=== PATIENT | female | born 1965 | race Caucasian/White ===

== ENCOUNTER 2017-07-30 09:22 | Day surgery (SDC) | payer MEDICARE, MEDICAID, SELFPAY ==
[2017-07-30] VITALS (7 sets, daily range): BP systolic 122–151; BP diastolic 67–81; PULSE 60–72; RESP 14–18; TEMP 36.4–37.1; O2SAT 93–100; BMI 26.9
--- NOTE | 2017-07-30 11:00 | RAD_ITS ---
STUDY: X-RAY - LUMBAR SPINE REASON FOR EXAM: Female, 52 years old. Intraoperative imaging for spinal stimulator placement. TECHNIQUE: 2 coned down intraoperative view(s) of the lumbar spine were obtained. COMPARISON: None FINDINGS: The tip of the electrodes is at the T8-T9 level RAD/Lumbar Spine 2 or 3 Views IMPRESSION: Intraoperative imaging provided for placement of the pain stimulator device. Electronically Signed: Paulino Snyder MD at 13:20 EST Tel [phone], Service support ,
[2017-07-30] MEDS: Clindamycin 900 MG/50 ML BAG 75 MG IV (11:29)
--- NOTE | 2017-07-30 12:49 | PCM.DC ---
- Discharge Diagnoses Current Active Problems: Lumbar post laminectomy syndrome Lumbar spine pain and bilateral lower extremity radiculopathy You will use the following diet at home:: Regular Your food should be the consistency of: Regular Discharge Activity: May Not Drive, May not drive while taking narcotic pain medications., May Not Shower, - - Avoid bending lifting twisting and rotation May shower in (days): 5 May resume sexual activity in: 10-14 days Weight Bearing Status: Weight bearing as tolerated Additional Activity Instructions:: Avoid bending, lifting, twisting, rotation, until Torri healing place Call your doctor if your incision/area has: Continuous Slow Oozing, Sudden Increased Bleeding, Increased Pain/ Swelling, Increased Redness, Foul Smelling Discharge, Swelling at the incision site Call your doctor if you observe: Fever of 101 or Higher, Coldness, Increased Pain, Numbness or Tingling, Inability to urinate, Inability to have a bowel movement, Uncontrolled pain Suture Line Care: Avoid Pulling/Pushing, Avoid Pinching/Bending Change Dressing in (Days):: 5 Cleanse incision/area with: Do not get Incision Wet Allergies/Adverse Reactions: Allergies Penicillins Allergy (Verified 07/26/17 09:26) Anaphylaxis Sulfa (Sulfonamide Antibiotics) Allergy (Verified 07/26/17 09:26) Hives doxycycline Adverse Reaction (Verified 07/26/17 09:26) Vomiting erythromycin base Adverse Reaction (Verified 07/26/17 09:26) Nausea oxaprozin [From Daypro] Adverse Reaction (Verified 07/26/17 09:26) Vomiting Medications to take at Discharge Albuterol IH (ProAir) [Proair Hfa (SP)Vent Pts] 2 puff INHALATION BID 12/29/16 Albuterol Inhaler [Ventolin Hfa (SP)] 2 puff INHALATION Q6H PRN PRN 12/29/16 Atorvastatin Calcium [Lipitor] 10 mg PO QHS 12/29/16 Cholecalciferol (Vitamin D3) [Vitamin D3] 1,000 unit PO DAILY 12/29/16 Gabapentin [Neurontin] 600 mg PO TIDCM 12/29/16 Morphine Sulfate [Morphine Sulfate ER] 15 mg PO BID 12/29/16 Oxycodone HCl [Oxycontin] 10 mg PO BID 12/29/16 Sertraline HCl [Zoloft] 150 mg PO DAILY 12/29/16 Tizanidine HCl [Zanaflex] 4 mg PO BID PRN 12/29/16 Primary Care Physician: Jairo Patten,Out of [Primary Care Provider] - Please Follow Up With: Chay Caballero MD
--- NOTE | 2017-07-30 12:54 | PCM.OP.BLANK ---
Problem List (1) Lumbar post-laminectomy syndrome Status: Chronic (2) Other intervertebral disc degeneration, lumbar region Status: Chronic (3) Radiculopathy of lumbar region Status: Chronic Operative Report Date of Procedure: 07/30/17 After informed consent about the procedure, review prior care for the presenting complaint of lower back pain and lower extremity radicular pain. Patient had successful spinal cord stimulator trial and decision was made to proceed with a permanent implant based on patient response to the trial period. Patient taken to OR [6], placed to the prone position pressure points were padded appropriate monitoring per anesthesia team were applied patient was safe to administer anesthesia per anesthesia team. Anesthesia provided is general anesthesia/monitored anesthesia care with no intubation. After appropriate fluoroscopy guidance and marking of the targeted area to the entry at the level of L2-3, appropriate draping was applied, sterile preparation using DuraPrep to both incision in the mid lumbar spinal area at the level of the L2-3, and of the right gluteal region for the IPG placement. Incision started , used 25-gauge needle for skin infiltration with local anesthesia using preservative-free lidocaine 0.5% mixture was Marcaine 0.25% was 1-200,000 epinephrine. Using #10 blade, made 2.5 inch longer to the incision, longitudinal, at the level of L2-L3 at the midline using #10 blade. Incision was completed using cauterization at level 30?, coagulation at levels 30? to ensure no bleeding spots. After proper exploration of the area, used a 14-gauge curved tip Touhy needle to access at 45? angle to the posterior epidural space at the entry point L1 to at midline confirmed with AP and lateral fluoroscopy and [id number] technique using preservative-free normal saline and glass syringes. I have placed to needles at the L1-2 posterior epidural space and noted aspiration was negative for CSF and blood. I passed TWO # 8 contacts leads, [[employer] System], they both passed parralel to each other through the 2 needles in the posterior epidural space confirmed with lateral fluoroscopy and AP fluoroscopy at the midline until placed smoothly at the posterior epidural space with the tip of the lead at the top of T8 vertebrae. Using [[employer] wireless] associate programmer analyst I have placed the associate programmer analyst on the leads insured [by the greenlight] and patient was awakened throughout the placement of the wires and placement of the leads, given patient 45 minutes complex programming for the different painful target areas until the patient verified appropriate coverage over the painful areas in the lower back and both legs using contacts in the middle of both leads. After patient has expressed satisfaction with the placement patient was put back to anesthesia for sedation. I disconnected the associate programmer analyst from the leads followed by pulling the 2 needles and the guidewire from the leads under live fluoroscopy and kept placement of the 2 leads at the posterior epidural space at the T8 and T9 as initially placed. At that time we used two anchors to anchor the [address] confirmed with fluoroscopy to ensure the leads stayed in place at each step followed by using 2 silk sutures to anchor the 2 anchors was then leads into the posterior longitudinal ligaments. IPG pocket was performed on the [ right] gluteal region below the belt line after identification was fluoroscopy, 2.5 inch transverse incision was made after local infiltration with lidocaine preservative-free 0.5% and Marcaine quarter percent infiltrated with 10 cc and using incision by #10 blade made the pocket to accommodate the rechargeable battery at place. I used tunneling device between the IPG pocket and the midline lumbar incision to tunnel the 2 leads to the IPG followed by anchoring the 2 leads into the battery and using hex wrench to tighten the placement, this was confirmed with another complex programming and impedance was completed to be appropriate at all contacts. After ensuring good placement of the system, I have used to silk suture to tighten the battery in place. We have used sterile irrigation to irrigate both pockets, followed by closure with the deep layer with 2-0 Vicryl and closure of the superficial layer with subcuticular closure with Vicryl sutures. We applied dressing using Dermabond, Steri-Strips at both insert incisions followed by covering with transparent draping. Patient tolerated the procedure well taken to recovery and prepared to be discharged home once meets anesthesia criteria, patient was given the postoperative instruction and the follow-up procedure including antibiotic coverage instructions.
--- NOTE | 2017-07-30 13:20 | OP.PCM_ITS ---
Problem List (1) Lumbar post-laminectomy syndrome Status: Chronic (2) Other intervertebral disc degeneration, lumbar region Status: Chronic (3) Radiculopathy of lumbar region Status: Chronic Operative Report Date of Procedure: 07/30/17 After informed consent about the procedure, review prior care for the presenting complaint of lower back pain and lower extremity radicular pain. Patient had successful spinal cord stimulator trial and decision was made to proceed with a permanent implant based on patient response to the trial period. Patient taken to OR [6], placed to the prone position pressure points were padded appropriate monitoring per anesthesia team were applied patient was safe to administer anesthesia per anesthesia team. Anesthesia provided is general anesthesia/monitored anesthesia care with no intubation. After appropriate fluoroscopy guidance and marking of the targeted area to the entry at the level of L2-3, appropriate draping was applied, sterile preparation using DuraPrep to both incision in the mid lumbar spinal area at the level of the L2-3, and of the right gluteal region for the IPG placement. Incision started , used 25-gauge needle for skin infiltration with local anesthesia using preservative-free lidocaine 0.5% mixture was Marcaine 0.25% was 1-200,000 epinephrine. Using #10 blade, made 2.5 inch longer to the incision, longitudinal, at the level of L2-L3 at the midline using #10 blade. Incision was completed using cauterization at level 30?, coagulation at levels 30? to ensure no bleeding spots. After proper exploration of the area, used a 14-gauge curved tip Touhy needle to access at 45? angle to the posterior epidural space at the entry point L1 to at midline confirmed with AP and lateral fluoroscopy and loss-of- resistance technique using preservative-free normal saline and glass syringes. I have placed to needles at the L1-2 posterior epidural space and noted aspiration was negative for CSF and blood. I passed TWO # 8 contacts leads, [[employer] System], they both passed parralel to each other through the 2 needles in the posterior epidural space confirmed with lateral fluoroscopy and AP fluoroscopy at the midline until placed smoothly at the posterior epidural space with the tip of the lead at the top of T8 vertebrae. Using [[employer] wireless] vba programmer I have placed the vba programmer on the leads insured [by the green[employer]] and patient was awakened throughout the placement of the wires and placement of the leads, given patient 45 minutes complex programming for the different painful target areas until the patient verified appropriate coverage over the painful areas in the lower back and both legs using contacts in the middle of both leads. After patient has expressed satisfaction with the placement patient was put back to anesthesia for sedation. I disconnected the vba programmer from the leads followed by pulling the 2 needles and the guidewire from the leads under live fluoroscopy and kept placement of the 2 leads at the posterior epidural space at the T8 and T9 as initially placed. At that time we used two anchors to anchor the [address] confirmed with fluoroscopy to ensure the leads stayed in place at each step followed by using 2 silk sutures to anchor the 2 anchors was then leads into the posterior longitudinal ligaments. IPG pocket was performed on the [ right] gluteal region below the belt line after identification was fluoroscopy, 2.5 inch transverse incision was made after local infiltration with lidocaine preservative-free 0.5% and Marcaine quarter percent infiltrated with 10 cc and using incision by #10 blade made the pocket to accommodate the rechargeable battery at place. I used tunneling device between the IPG pocket and the midline lumbar incision to tunnel the 2 leads to the IPG followed by anchoring the 2 leads into the battery and using hex wrench to tighten the placement, this was confirmed with another complex programming and impedance was completed to be appropriate at all contacts. After ensuring good placement of the system, I have used to silk suture to tighten the battery in place. We have used sterile irrigation to irrigate both pockets, followed by closure with the deep layer with 2-0 Vicryl and closure of the superficial layer with subcuticular closure with Vicryl sutures. We applied dressing using Dermabond, Steri-Strips at both insert incisions followed by covering with transparent draping. Patient tolerated the procedure well taken to recovery and prepared to be discharged home once meets anesthesia criteria, patient was given the postoperative instruction and the follow-up procedure including antibiotic coverage instructions.
--- NOTE | 2017-07-30 14:04 | PCM.OPRPT ---
Problem List (1) Lumbar post-laminectomy syndrome Status: Chronic (2) Other intervertebral disc degeneration, lumbar region Status: Chronic (3) Radiculopathy of lumbar region Status: Chronic Report of Operation Date of Procedure: 07/30/17 Pre-Operative Diagnosis: Lumbar post laminectomy syndrome. Lower back pain and lumbar radiculopathy. Lumbar degenerative disc disease Post-Operative Diagnosis: Same Surgery/Procedure Performed:: Spinal cord stimulator permanent implant/[employer]tr[employer] rechargeable system. Permanent implant of #2 8 contexts lead under fluoroscopy guidance next. Complex programming 30-45 minutes intraoperative, 15-30 minutes postoperative. Physician fluoroscopy Description of Surgical Findings:: Lumbar postlaminectomy syndrome Type of Anesthesia:: MAC, MAC/Supplemental/Local Estimated Blood Loss (mL): 20 cc Fluids Replaced: 250 cc normal saline Description of Procedure: After informed consent about the procedure, review prior care for the presenting complaint of lower back pain and lower extremity radicular pain. Patient had successful spinal cord stimulator trial and decision was made to proceed with a permanent implant based on patient response to the trial period. Patient taken to OR 6, placed to the prone position pressure points were padded appropriate monitoring per anesthesia team were applied patient was safe to administer anesthesia per anesthesia team. Anesthesia provided is general anesthesia/monitored anesthesia care with no intubation. After appropriate fluoroscopy guidance and marking of the targeted area to the entry at the level of L2-3, appropriate draping was applied, sterile preparation using DuraPrep to both incision in the mid lumbar spinal area at the level of the L2-3, and of the right gluteal region for the IPG placement. Incision started , used 25-gauge needle for skin infiltration with local anesthesia using preservative-free lidocaine 0.5% mixture was Marcaine 0.25% was 1-200,000 epinephrine. Using #10 blade, made 2.5 inch longer to the incision, longitudinal, at the level of L2-L3 at the midline using #10 blade. Incision was completed using cauterization at level 30?, coagulation at levels 30? to ensure no bleeding spots. After proper exploration of the area, used a 14-gauge curved tip Touhy needle to access at 45? angle to the posterior epidural space at the entry point L1 to at midline confirmed with AP and lateral fluoroscopy and bfqh-ep-[id number] technique using preservative-free normal saline and glass syringes. I have placed to needles at the L1-2 posterior epidural space and noted aspiration was negative for CSF and blood. I passed TWO # 8 contacts leads, [employer] system, they both passed parralel to each other through the 2 needles in the posterior epidural space confirmed with lateral fluoroscopy and AP fluoroscopy at the midline until placed smoothly at the posterior epidural space with the tip of the lead at the top of T8 vertebrae. Using [employer] wireless j2ee programmer I have placed the j2ee programmer on the leads insured right and patient was awakened throughout the placement of the wires and placement of the leads, given patient 45 minutes complex programming for the different painful target areas until the patient verified appropriate coverage over the painful areas in the lower back and both legs using contacts in the middle of both leads. After patient has expressed satisfaction with the placement patient was put back to anesthesia for sedation. I disconnected the j2ee programmer from the leads followed by pulling the 2 needles and the guidewire from the leads under live fluoroscopy and kept placement of the 2 leads at the posterior epidural space at the T8 and T9 as initially placed. At that time we used two anchors to anchor the [address] confirmed with fluoroscopy to ensure the leads stayed in place at each step followed by using 2 silk sutures to anchor the 2 anchors was then leads into the posterior longitudinal ligaments. IPG pocket was performed on the right gluteal region below the belt line after identification was fluoroscopy, 2.5 inch transverse incision was made after local infiltration with lidocaine preservative-free 0.5% and Marcaine quarter percent infiltrated with 10 cc and using incision by #10 blade made the pocket to accommodate the rechargeable battery at place. I used tunneling device between the IPG pocket and the midline lumbar incision to tunnel the 2 leads to the IPG followed by anchoring the 2 leads into the battery and using hex wrench to tighten the placement, this was confirmed with another complex programming and impedance was completed to be appropriate at all contacts. After ensuring good placement of the system, I have used to silk suture to tighten the battery in place. We have used sterile irrigation to irrigate both pockets, followed by closure with the deep layer with 2-0 Vicryl and closure of the superficial layer with subcuticular closure with Vicryl sutures. We applied dressing using Dermabond, Steri-Strips at both insert incisions followed by covering with transparent draping. Patient tolerated the procedure well taken to recovery and prepared to be discharged home once meets anesthesia criteria, patient was given the postoperative instruction and the follow-up procedure including antibiotic coverage instructions. - Complications None
--- NOTE | 2017-07-30 14:08 | OP.PCM_ITS ---
Problem List (1) Lumbar post-laminectomy syndrome Status: Chronic (2) Other intervertebral disc degeneration, lumbar region Status: Chronic (3) Radiculopathy of lumbar region Status: Chronic Report of Operation Date of Procedure: 07/30/17 Pre-Operative Diagnosis: Lumbar post laminectomy syndrome. Lower back pain and lumbar radiculopathy. Lumbar degenerative disc disease Post-Operative Diagnosis: Same Surgery/Procedure Performed:: Spinal cord stimulator permanent implant/ [employer]tr[employer] rechargeable system. Permanent implant of #2 8 contexts lead under fluoroscopy guidance next. Complex programming 30-45 minutes intraoperative, 15 -30 minutes postoperative. Physician fluoroscopy Description of Surgical Findings:: Lumbar postlaminectomy syndrome Type of Anesthesia:: MAC, MAC/Supplemental/Local Estimated Blood Loss (mL): 20 cc Fluids Replaced: 250 cc normal saline Description of Procedure: After informed consent about the procedure, review prior care for the presenting complaint of lower back pain and lower extremity radicular pain. Patient had successful spinal cord stimulator trial and decision was made to proceed with a permanent implant based on patient response to the trial period. Patient taken to OR 6, placed to the prone position pressure points were padded appropriate monitoring per anesthesia team were applied patient was safe to administer anesthesia per anesthesia team. Anesthesia provided is general anesthesia/monitored anesthesia care with no intubation. After appropriate fluoroscopy guidance and marking of the targeted area to the entry at the level of L2-3, appropriate draping was applied, sterile preparation using DuraPrep to both incision in the mid lumbar spinal area at the level of the L2-3, and of the right gluteal region for the IPG placement. Incision started , used 25-gauge needle for skin infiltration with local anesthesia using preservative-free lidocaine 0.5% mixture was Marcaine 0.25% was 1-200,000 epinephrine. Using #10 blade, made 2.5 inch longer to the incision, longitudinal, at the level of L2-L3 at the midline using #10 blade. Incision was completed using cauterization at level 30?, coagulation at levels 30? to ensure no bleeding spots. After proper exploration of the area, used a 14-gauge curved tip Touhy needle to access at 45? angle to the posterior epidural space at the entry point L1 to at midline confirmed with AP and lateral fluoroscopy and loss-of- resistance technique using preservative-free normal saline and glass syringes. I have placed to needles at the L1-2 posterior epidural space and noted aspiration was negative for CSF and blood. I passed TWO # 8 contacts leads, [employer] system, they both passed parralel to each other through the 2 needles in the posterior epidural space confirmed with lateral fluoroscopy and AP fluoroscopy at the midline until placed smoothly at the posterior epidural space with the tip of the lead at the top of T8 vertebrae. Using [employer] wireless application programmer analyst I have placed the application programmer analyst on the leads insured right and patient was awakened throughout the placement of the wires and placement of the leads, given patient 45 minutes complex programming for the different painful target areas until the patient verified appropriate coverage over the painful areas in the lower back and both legs using contacts in the middle of both leads. After patient has expressed satisfaction with the placement patient was put back to anesthesia for sedation. I disconnected the application programmer analyst from the leads followed by pulling the 2 needles and the guidewire from the leads under live fluoroscopy and kept placement of the 2 leads at the posterior epidural space at the T8 and T9 as initially placed. At that time we used two anchors to anchor the [address] confirmed with fluoroscopy to ensure the leads stayed in place at each step followed by using 2 silk sutures to anchor the 2 anchors was then leads into the posterior longitudinal ligaments. IPG pocket was performed on the right gluteal region below the belt line after identification was fluoroscopy, 2.5 inch transverse incision was made after local infiltration with lidocaine preservative-free 0.5% and Marcaine quarter percent infiltrated with 10 cc and using incision by #10 blade made the pocket to accommodate the rechargeable battery at place. I used tunneling device between the IPG pocket and the midline lumbar incision to tunnel the 2 leads to the IPG followed by anchoring the 2 leads into the battery and using hex wrench to tighten the placement, this was confirmed with another complex programming and impedance was completed to be appropriate at all contacts. After ensuring good placement of the system, I have used to silk suture to tighten the battery in place. We have used sterile irrigation to irrigate both pockets, followed by closure with the deep layer with 2-0 Vicryl and closure of the superficial layer with subcuticular closure with Vicryl sutures. We applied dressing using Dermabond, Steri-Strips at both insert incisions followed by covering with transparent draping. Patient tolerated the procedure well taken to recovery and prepared to be discharged home once meets anesthesia criteria, patient was given the postoperative instruction and the follow-up procedure including antibiotic coverage instructions. - Complications None
[2017-07-30] MEDS: HYDROcodone Bitartrate/Apap 5/325 Tablet PO (14:40)
[2017-07-30] MEDS: Ketorolac 30 MG/ML Syringe IM (14:40)
== END 2017-07-30 15:20 | disposition home or self-care (01) ==
LOC: SDC 09:23 → AC 09:25
PROVIDERS: Visit Provider Anesthesiology
PROC: (CPT 63685; principal; 2017-07-30 10:45)
DX: M51.36 Other intervertebral disc degeneration, lumbar region (principal); M96.1 Postlaminectomy syndrome, not elsewhere classified; M51.16 Intervertebral disc disorders with radiculopathy, lumbar region; M47.26 Other spondylosis with radiculopathy, lumbar region; M48.061 Spinal stenosis, lumbar region without neurogenic claudication; G89.29 Other chronic pain; M79.7 Fibromyalgia; J44.9 Chronic obstructive pulmonary disease, unspecified; M19.90 Unspecified osteoarthritis, unspecified site; G56.01 Carpal tunnel syndrome, right upper limb; K58.9 Irritable bowel syndrome, unspecified; E78.00 Pure hypercholesterolemia, unspecified; F32.9 Major depressive disorder, single episode, unspecified; F41.9 Anxiety disorder, unspecified; Z79.891 Long term (current) use of opiate analgesic; Z79.899 Other long term (current) drug therapy; F17.210 Nicotine dependence, cigarettes, uncomplicated; Z90.710 Acquired absence of both cervix and uterus
CPT/HCPCS: 63650 ×2; 63685; 95972; 72100; 76000; J7120; J3490

== ENCOUNTER → 2017-11-05 15:04 | Outpatient (CLI) | payer MEDICARE, SELFPAY ==
[2017-11-05 16:00] LABS: Amphetamine Urine VISTA NEGATIVE (<1000 ng/mL); Barbiturate Urine VISTA NEGATIVE (< 200 ng/mL); Benzodiazepine Urine VISTA NEGATIVE (< 200 ng/mL); Cocaine Urine VISTA NEGATIVE (< 300 ng/mL); Ecstacy Urine VISTA NEGATIVE (< 500 ng/mL); Methadone Urine VISTA NEGATIVE (< 300 ng/mL); PCP Urine VISTA NEGATIVE (< 25 ng/mL); THC Urine VISTA NEGATIVE (< 50 ng/mL); Vista UDS pH Range 7
== END ==
PROVIDERS: Visit Provider Anesthesiology
DX: F11.20 Opioid dependence, uncomplicated (principal)
CPT/HCPCS: 80307

== ENCOUNTER 2018-03-25 16:35 | Emergency (ER) | payer MEDICARE, SELFPAY ==
[2018-03-25] VITALS (11 sets, daily range): BP systolic 123–179; BP diastolic 80–103; PULSE 55–85; RESP 12–24; TEMP 37.1; O2SAT 96–100; BMI 26.6
--- NOTE | 2018-03-25 16:47 | EKG12_ITS ---
Test Reason : CP Blood Pressure : / mmHG Vent. Rate : 081 BPM Atrial Rate : 081 BPM P-R Int : 164 ms QRS Dur : 074 ms QT Int : 386 ms P-R-T Axes : 071 049 064 degrees QTc Int : 448 ms Normal sinus rhythm Nonspecific ST abnormality Abnormal ECG Confirmed by ZOFIA FRYE, FITZ ([id number]), editor magazine IRAIDA FELIZ ([id number]) on 03/28/2018 3:17:43 PM Referred By: MAXIMO/MARTHA Confirmed By:FITZ ARMIJO MD
--- NOTE | 2018-03-25 16:54 | ED.RN ---
NO OLD EKG'S IN MUSE
--- NOTE | 2018-03-25 17:01 | RAD_ITS ---
STUDY: X-RAY CHEST REASON FOR EXAM: Female, 53 years old. Chest pain TECHNIQUE: Single AP portable view of the chest. COMPARISON: None. FINDINGS: athletic monitor leads are present. Spinal stimulator electrodes are seen overlying the mid thoracic region. The lungs are clear and expanded. There is no demonstrated pleural abnormality. Normal size heart. Normal mediastinum and ismael. Normal visualized pulmonary arteries. Normal visualized aortic arch and descending thoracic aorta. Normal visualized thoracic spine. Normal visualized ribs, clavicles, and shoulders. There is no demonstrated abnormality of the visualized soft tissue structures of the upper abdomen. RAD/Chest 1 View (Portable) IMPRESSION: No acute cardiopulmonary disease process is seen. Electronically Signed: Odell Butler MD at 17:15 EDT , Service support ,
[2018-03-25 17:04] LABS: Absolute Lymphocyte Count 3.46 X10^3/ul (0.83-4.51); Absolute Neutrophil Count 3.2 X10^3/uL (2.0-7.7); Basophil# 0.01 X10^3/uL; Basophil% 0.1 % (0-1); Eosinophil# 0.33 X10^3/uL; Eosinophils% 4.4 % (0-5); Hematocrit 40.3 % (37-47); Hemoglobin 13.4 g/dl (12.0-15.0); Lymphocyte # 3.46 X10^3/ul (4.0); Lymphocyte % 45.8 % (19-41); Mean Corp Hgb Conc 33.3 g/gl (32-36); Mean Corpuscular Hgb 30.6 pg (27.0-32.0); Mean Platelet Vol. 10.2 fl (6.2-12.0); Monocyte# 0.57 X10^3/uL; Monocyte% 7.5 % (0-10); Neutrophil # 3.18 X10^3/uL (2.7-7.7); Neutrophil % 42.1 % (47-70); Platelet Count 200 K/mm3 (150-450); RBC Distribution Width SD 43.6 fl (35.1-43.9); Red Blood Count 4.38 M/mm3 (4.2-5.4); White Blood Count 7.6 K/mm3 (4.4-11.0)
[2018-03-25 17:15] LABS: POSITIVE COUNT NO; POSITIVE DIFFERENTIAL NO; POSITIVE MORPHOLOGY NO
[2018-03-25 17:23] LABS: Anion Gap 6 (5-15); BUN 13 mg/dL (7-18); BUN/Creat Ratio 15.5 RATIO (10-20); Calcium,Total 8.9 mg/dL (8.5-10.1); Chloride 107 mmol/L (98-107); Creatinine, Serum 0.84 mg/dL (0.55-1.02); EST Glomerular Filtration Rate 75 mL/min (>60); Est Glom Filt Rate - Afr Amer 91 mL/min (>60); Estimated Creatinine Clearance 65.35 ml/min; Glucose 100 mg/dL (74-106); Potassium 3.9 mmol/L (3.5-5.1); Sodium Level 142 mmol/L (136-145)
[2018-03-25] MEDS: Aspirin 81 MG TAB.CHEW 324 MG PO (17:30)
[2018-03-25] MEDS: 0.9% Normal Saline 1,000 ML 150 ML IV (17:32)
--- NOTE | 2018-03-25 18:54 | ED.DCSUM_ITS ---
- ER Visit Summary Date of Service: 03/25/18 Chief Complaint: Chest pain History of Present Illness: The patient is a 53 F with a 3-day history of waxing and waning chest heaviness with radiation to her arms, right greater than left. She does report some associated shortness of breath. She reports having an AL 6 months ago. She had a heart cath at [facility] but states she does not have any cardiac stents. Physical Examination: Blood pressure is 179/103, other vitals normal. Patient sitting upright in bed no acute distress. Head neck examination is normal. Heart is regular rate and rhythm. Lung sounds are clear. Abdomen is soft nontender. Extremity examination was no calf tenderness or edema. She has strong distal pulses. Test Results: EKG is sinus at 81 with 1/[address] depression. Portal chest x-ray shows no acute process. CBC and chemistry studies are normal. Plan is less than 0.015. Emergency Department Course and Treatment: Patient is given aspirin along with 3 sublingual nitro. On repeat evaluation she states her pain is improved to a 4. She will have Nitropaste placed on her chest and given a dose of morphine. I discussed hospitalization with her for further evaluation. 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 I spoke with and patient has been accepted in transfer. Treatment Plan: [] Disposition: Transfer Impression: Chest pain This note was generated with [employer] dictation software. It may contain incorrect words, spelling, and punctuation that were not noted in review of the chart prior to signing ED Disposition - Plan for ED Patient: Chief Complaint: Chest Pain Referrals: Care Physician,No Primary [Primary Care Provider] -
--- NOTE | 2018-03-25 19:13 | NURSING ---
ACCEPTED TO [facility] FOR REPORT
[2018-03-25] MEDS: Nitroglycerin Oint 1 INCH PACKET TRANSDERM. (19:20)
[2018-03-25] MEDS: Ondansetron 4 MG/2 ML Vial IV ×2 (19:22→20:32)
[2018-03-25] MEDS: Morphine 4 MG/ML Syringe IV ×2 (19:25→20:32)
== END 2018-03-25 20:30 | disposition short-term general hospital (02) ==
LOC: ED 17:21
PROVIDERS: Emergency Provider Emergency Medicine
DX: R07.9 Chest pain, unspecified (principal); R06.00 Dyspnea, unspecified; I25.10 Atherosclerotic heart disease of native coronary artery without angina pectoris; K21.9 Gastro-esophageal reflux disease without esophagitis; F32.9 Major depressive disorder, single episode, unspecified; F41.9 Anxiety disorder, unspecified; I25.2 Old myocardial infarction; Z72.0 Tobacco use; Z79.899 Other long term (current) drug therapy
CPT/HCPCS: 71045; 80048; 84484; 85025; 93005; 96361; 96374; 96375; 96376; 99285; J7030; A4216; J2405

== ENCOUNTER → 2018-12-09 11:20 | Outpatient (CLI) | payer MEDICARE, SELFPAY ==
[2018-12-09 12:12] LABS: Amphetamine Urine VISTA NEGATIVE (<1000 ng/mL); Barbiturate Urine VISTA NEGATIVE (< 200 ng/mL); Benzodiazepine Urine VISTA NEGATIVE (< 200 ng/mL); Cocaine Urine VISTA NEGATIVE (< 300 ng/mL); Ecstacy Urine VISTA NEGATIVE (< 500 ng/mL); Methadone Urine VISTA NEGATIVE (< 300 ng/mL); PCP Urine VISTA NEGATIVE (< 25 ng/mL); THC Urine VISTA NEGATIVE (< 50 ng/mL); Vista UDS pH Range 5
== END ==
PROVIDERS: Referring Provider Anesthesiology; Visit Provider Anesthesiology
DX: F11.20 Opioid dependence, uncomplicated (principal)
CPT/HCPCS: 80307

== ENCOUNTER 2018-12-30 14:43 | Day surgery (SDC) | payer MEDICARE, SELFPAY ==
[2018-12-30] VITALS (7 sets, daily range): BP systolic 150–160; BP diastolic 76–91; PULSE 48–60; RESP 16; TEMP 36.1–36.7; O2SAT 94–98; BMI 25.4
--- NOTE | 2018-12-30 16:00 | DCINST_ITS ---
- Discharge Diagnoses Current Active Problems: Lower back pain Reason(s) for Visit for Discharge Instructions: Receiving lumbar facet injection at the L3-4, L4-5 5 S1, procedure on the left side You will use the following diet at home:: No restrictions Your food should be the consistency of: Regular Discharge Activity: Return to Normal Activity May shower in (days): 1 May resume sexual activity in: No Restrictions Weight Bearing Status: Weight bearing as tolerated, Partial weight bearing Call your doctor if your incision/area has: Continuous Slow Oozing, Sudden Increased Bleeding, Increased Pain/ Swelling, Increased Redness, Foul Smelling Discharge, Swelling at the incision site Call your doctor if you observe: Fever of 101 or Higher, Coldness, Increased Pain Suture Line Care: Avoid Pulling/Pushing, Avoid Pinching/Bending Remove Dressing in (days):: 1 Cleanse incision/area with: Soap & Water Instructions: What Is Osteoarthritis?, Understanding Osteoarthritis, Osteoarthritis: Coping with Pain, Osteoarthritis: Managing Pain, Osteoarthritis: Injections or Surgery, Osteoarthritis: Tips for Daily Living, Osteoarthritis: Exercise, Living with Osteoarthritis, Osteoarthritis: Common Sites Allergies/Adverse Reactions: Allergies bupropion [From Wellbutrin] Allergy (Verified 12/29/18 09:41) Hives Penicillins Allergy (Verified 12/29/18 09:41) Anaphylaxis Sulfa (Sulfonamide Antibiotics) Allergy (Verified 12/29/18 09:41) Hives doxycycline Adverse Reaction (Verified 12/29/18 09:41) Vomiting erythromycin base Adverse Reaction (Verified 12/29/18 09:41) Nausea oxaprozin [From Daypro] Adverse Reaction (Verified 12/29/18 09:41) Vomiting Medications to take at Discharge Atorvastatin Calcium [Lipitor] 10 mg PO QHS 12/29/16 Gabapentin [Neurontin] 600 mg PO TIDCM 12/29/16 Morphine Sulfate [Morphine Sulfate ER] 15 mg PO BID 12/29/16 Oxycodone HCl [Oxycontin] 10 mg PO BID 12/29/16 Sertraline HCl [Zoloft] 150 mg PO DAILY 12/29/16 Tizanidine HCl [Zanaflex] 4 mg PO BID PRN 12/29/16 Aspirin [Aspir 81] 81 mg PO DAILY 12/29/18 Ergocalciferol [Vitamin D] 50,000 unit PO Q7D 12/29/18 Lisinopril [Prinivil] 10 mg PO DAILY 12/29/18 Tiotropium [place] [Spiriva 18 MCG] 2 puff INHALATION DAILY 12/29/18 Metoprolol(XL)Succ [Toprol Xl (Beta Sarah)] 25 mg PO BID 12/30/18 Primary Care Physician: Jairo Patten,Out of [Primary Care Provider] - Test Results: Test results from this visit will be discussed in further detail at your follow- up appointment, if applicable. Please Follow Up With: Chay Caballero MD
--- NOTE | 2018-12-30 16:02 | PCM.OPRPT ---
Problem List (1) Spondylosis of lumbar region without myelopathy or radiculopathy Status: Chronic Report of Operation Date of Procedure: 12/30/18 Pre-Operative Diagnosis: Lumbar facet spondylosis Post-Operative Diagnosis: Lumbar facet spondylosis lumbar spine pain with axial movement including rotation bending and lifting Surgery/Procedure Performed:: Left-sided lumbar facet blocks at the level of the left side L3-4 L4-5 5 S1 facets median nerve branch on the first with tightness Description of Surgical Findings:: Under sterile conditions. Patient placed in the prone position, pressure points were padded, patient was ready from the nursing and the anesthesia team. After identification of the side and the target area for the block under guided fluoroscopy, the entry site was marked with marking pen. I used Betadine for sterilization of the skin, sterile draping were applied. Using 25-gauge needle to infiltrate the skin with local anesthesia using preservative-free lidocaine 0.5% injected 2.5 mL at each site of entry. Using oblique fluoroscopy, accessed the left medial nerve branch supplying the left lumbar facets L3-4, L4-5, L5-S1 using 22-gauge spinal needle. After confirmation of appropriate needle placement to the targeted area with AP and lateral fluoroscopy, injected 2.5 mL mixture of preservative-free Marcaine 0.5% and Kenalog [20] mg at each site. [place] was removed, pressure dressing were applied. Patient tolerated the procedure well and was taken to the recovery. Type of Anesthesia:: Local MAC - Complications None
--- NOTE | 2018-12-30 16:57 | RAD_ITS ---
PROCEDURE: Fluoroscopic guided left facet blocks DATE OF EXAMINATION: December 30, 2018 INDICATION: Female, 53 years old. Back pain FLUOROSCOPY TIME (if supplied): (0:17) minutes/seconds RADIATION DOSAGE (If Supplied By Facility): CTDIvol = ( ) mGy, DLP = ( ) mGycm 3 fluoroscopic guided images were submitted during fluoroscopic guided facet injections at L2-3, L3-4, L4-5 and L5-S1. For more complete information recommend correlation with procedural notes RAD/L/S Spine Min 4 Views IMPRESSION: Fluoroscopic guided multilevel left lumbar facet blocks Electronically Signed: Johnnie Fernando MD at 19:35 EDT , Service support ,
[2018-12-30] MEDS: Triamcinolone Acetonide 40 MG/ML Vial (17:07)
[2018-12-30] MEDS: Bupivacaine 0.25% 30 ML Vial (17:07)
== END 2018-12-30 18:00 | disposition home or self-care (01) ==
LOC: SDC 14:43 → AC 14:45
PROVIDERS: Referring Provider Anesthesiology; Visit Provider Anesthesiology
PROC: 3E0T3BZ Introduction of Anesthetic Agent into Peripheral Nerves and Plexi, Percutaneous Approach (ICD-10-PCS; CPT 64493; principal; 2018-12-30 15:55)
DX: M47.816 Spondylosis without myelopathy or radiculopathy, lumbar region (principal); M47.817 Spondylosis without myelopathy or radiculopathy, lumbosacral region; M51.26 Other intervertebral disc displacement, lumbar region; M51.36 Other intervertebral disc degeneration, lumbar region; M48.061 Spinal stenosis, lumbar region without neurogenic claudication; M54.16 Radiculopathy, lumbar region; M96.1 Postlaminectomy syndrome, not elsewhere classified; G89.29 Other chronic pain; M79.7 Fibromyalgia; J44.9 Chronic obstructive pulmonary disease, unspecified; I10 Essential (primary) hypertension; E78.00 Pure hypercholesterolemia, unspecified; G25.81 Restless legs syndrome; K58.9 Irritable bowel syndrome, unspecified; M19.90 Unspecified osteoarthritis, unspecified site; F32.9 Major depressive disorder, single episode, unspecified; F41.9 Anxiety disorder, unspecified; F17.200 Nicotine dependence, unspecified, uncomplicated; Z79.82 Long term (current) use of aspirin; Z79.891 Long term (current) use of opiate analgesic; Z79.899 Other long term (current) drug therapy; I25.2 Old myocardial infarction; Z87.442 Personal history of urinary calculi
CPT/HCPCS: 64493; 64494; 64495; 64483; 72110; J7120

== ENCOUNTER 2019-02-10 12:45 | Day surgery (SDC) | payer MEDICARE, SELFPAY ==
[2018-12-30 15:02] VITALS: BMI 25.4
[2019-02-10] VITALS (7 sets, daily range): BP systolic 108–136; BP diastolic 58–80; PULSE 48–62; RESP 16; TEMP 36.1–36.5; O2SAT 95–98; BMI 26.7
--- NOTE | 2019-02-10 14:54 | PCM.DC ---
- Discharge Diagnoses Current Active Problems: Lower back pain, worse pain on the right side Reason(s) for Visit for Discharge Instructions: Right sacroiliac joint injection and trigger point at the level of the L5-S1 You will use the following diet at home:: No restrictions Your food should be the consistency of: Regular Discharge Activity: Return to Normal Activity May shower in (days): 1 May resume sexual activity in: No Restrictions Ice area for (Minutes): 1 Weight Bearing Status: Weight bearing as tolerated Additional Activity Instructions:: As tolerated Call your doctor if your incision/area has: Continuous Slow Oozing, Sudden Increased Bleeding, Increased Pain/ Swelling, Increased Redness, Foul Smelling Discharge, Swelling at the incision site Call your doctor if you observe: Fever of 101 or Higher, Coldness, Increased Pain, Numbness or Tingling, Uncontrolled pain Suture Line Care: Avoid Pulling/Pushing, Avoid Pinching/Bending Remove Dressing in (days):: 1 Cleanse incision/area with: Soap & Water, Keep Dressing Clean & Dry Allergies/Adverse Reactions: Allergies bupropion [From Wellbutrin] Allergy (Verified 12/29/18 09:41) Hives Penicillins Allergy (Verified 12/29/18 09:41) Anaphylaxis Sulfa (Sulfonamide Antibiotics) Allergy (Verified 12/29/18 09:41) Hives doxycycline Adverse Reaction (Verified 12/29/18 09:41) Vomiting erythromycin base Adverse Reaction (Verified 12/29/18 09:41) Nausea oxaprozin [From Daypro] Adverse Reaction (Verified 12/29/18 09:41) Vomiting Medications to take at Discharge Atorvastatin Calcium [Lipitor] 10 mg PO QHS 12/29/16 Gabapentin [Neurontin] 600 mg PO TIDCM 12/29/16 Morphine Sulfate [Morphine Sulfate ER] 15 mg PO BID 12/29/16 Oxycodone HCl [Oxycontin] 10 mg PO BID 12/29/16 Sertraline HCl [Zoloft] 150 mg PO DAILY 12/29/16 Tizanidine HCl [Zanaflex] 4 mg PO BID PRN 12/29/16 Aspirin [Aspir 81] 81 mg PO DAILY 12/29/18 Ergocalciferol [Vitamin D] 50,000 unit PO Q7D 12/29/18 Lisinopril [Prinivil] 10 mg PO DAILY 12/29/18 Tiotropium [place] [Spiriva 18 MCG] 2 puff INHALATION DAILY 12/29/18 Metoprolol(XL)Succ [Toprol Xl (Beta Sarah)] 25 mg PO BID 12/30/18 Primary Care Physician: VALERY FERNANDO [Other] Test Results: Test results from this visit will be discussed in further detail at your follow-up appointment, if applicable. Please Follow Up With: Chay Caballero MD
--- NOTE | 2019-02-10 14:55 | PCM.OPRPT ---
Problem List (1) Sacroiliitis, not elsewhere classified Status: Acute (2) Sacroiliitis, not elsewhere classified Status: Acute (3) Inflammation of both sacroiliac joints Status: Acute (4) Inflammation of both sacroiliac joints Status: Acute (5) Myalgia, unspecified site Status: Acute (6) Myalgia, unspecified site Status: Acute (7) Failed back syndrome of lumbar spine Status: Acute Report of Operation Date of Procedure: 02/10/19 Pre-Operative Diagnosis: Right sacroiliitis and lower back pain, painful trigger point at the level the L5-S1 area, worse pain on the right Post-Operative Diagnosis: Same Surgery/Procedure Performed:: Right sacroiliac joint injection and right trigger point injection at the level of the L5-S1 area paraspinal lumbosacral region Description of Surgical Findings:: Under sterile conditions. Patient placed in the prone position, pressure points were padded, patient was ready from the nursing and the anesthesia team. After identification of the side and the target area for the block under guided fluoroscopy, access fluoroscopy in the oblique with a approach directed to the right sacroiliac joint to the lower third of the joint, the entry site was marked with marking pen. I used Betadine for sterilization of the skin, sterile draping were applied. Using 25-gauge needle to infiltrate the skin with local anesthesia using preservative-free lidocaine 0.5% injected 5 mL at each site of entry. Using oblique fluoroscopy, accessed the right sacroiliac joint region, also access to the paraspinal lumbosacral muscular area at the right lumbosacral region using 22-gauge spinal needle. After confirmation of appropriate needle placement to the targeted area with AP and lateral fluoroscopy, injected 10 mL mixture of preservative-free Marcaine 0.5% and Kenalog [80] mg at each site. [place] was removed, pressure dressing were applied. Patient tolerated the procedure well and was taken to the recovery. Type of Anesthesia:: Local MAC - Complications None
--- NOTE | 2019-02-10 15:00 | RAD_ITS ---
STUDY: X-RAY - SACROILIAC JOINTS REASON FOR EXAM: Female, 54 years old. Fluoroscopic guided right sacroiliac joint injection TECHNIQUE: 5 view(s) of the sacroiliac joints were obtained. COMPARISON: None. FINDINGS: 5 fluoroscopic guided images were obtained during right sacroiliac joint injection to document the procedure. For more complete information recommend correlation with procedural notes RAD/Fluoro Guided Needle Placement IMPRESSION: Fluoroscopic guided right sacroiliac joint injection. Electronically Signed: Johnnie Fernando MD at 16:45 EDT , Service support ,
[2019-02-10] MEDS: Triamcinolone Acetonide 40 MG/ML Vial (15:07)
[2019-02-10] MEDS: Bupivacaine 0.25% 30 ML Vial (15:08)
== END 2019-02-10 16:43 | disposition home or self-care (01) ==
LOC: SDC 12:46 → AC 12:47
PROVIDERS: Referring Provider Anesthesiology; Visit Provider Anesthesiology
PROC: 3E0U3GC Introduction of Other Therapeutic Substance into Joints, Percutaneous Approach (ICD-10-PCS; CPT 27096; principal; 2019-02-10 13:55)
DX: M46.1 Sacroiliitis, not elsewhere classified (principal); M51.16 Intervertebral disc disorders with radiculopathy, lumbar region; M48.061 Spinal stenosis, lumbar region without neurogenic claudication; M47.26 Other spondylosis with radiculopathy, lumbar region; M47.27 Other spondylosis with radiculopathy, lumbosacral region; M96.1 Postlaminectomy syndrome, not elsewhere classified; J44.9 Chronic obstructive pulmonary disease, unspecified; I10 Essential (primary) hypertension; E78.00 Pure hypercholesterolemia, unspecified; G25.81 Restless legs syndrome; M79.7 Fibromyalgia; G56.01 Carpal tunnel syndrome, right upper limb; M19.90 Unspecified osteoarthritis, unspecified site; F32.9 Major depressive disorder, single episode, unspecified; F41.9 Anxiety disorder, unspecified; F17.200 Nicotine dependence, unspecified, uncomplicated; Z79.891 Long term (current) use of opiate analgesic; Z79.82 Long term (current) use of aspirin; Z79.899 Other long term (current) drug therapy; I25.2 Old myocardial infarction
CPT/HCPCS: 01992; G0260; 76000; 77002; J7120

== ENCOUNTER → 2019-06-09 16:00 | Outpatient (CLI) | payer MEDICARE, SELFPAY ==
[2019-02-10 13:09] VITALS: BMI 26.7
[2019-06-09 22:29] LABS: Amphetamine Urine VISTA NEGATIVE (<1000 ng/mL); Barbiturate Urine VISTA NEGATIVE (< 200 ng/mL); Benzodiazepine Urine VISTA NEGATIVE (< 200 ng/mL); Cocaine Urine VISTA NEGATIVE (< 300 ng/mL); Ecstacy Urine VISTA NEGATIVE (< 500 ng/mL); Methadone Urine VISTA NEGATIVE (< 300 ng/mL); PCP Urine VISTA NEGATIVE (< 25 ng/mL); THC Urine VISTA NEGATIVE (< 50 ng/mL); Vista UDS pH Range 5
== END ==
PROVIDERS: Referring Provider Anesthesiology; Visit Provider Anesthesiology
DX: F11.20 Opioid dependence, uncomplicated (principal)
CPT/HCPCS: 80307

== ENCOUNTER → 2019-10-13 14:33 | Outpatient (CLI) | payer MEDICARE, MEDICAID, SELFPAY ==
[2019-02-10 13:09] VITALS: BMI 26.7
--- NOTE | 2019-10-13 14:40 | RAD_ITS ---
STUDY: X-RAY - THORACIC SPINE REASON FOR EXAM: Female, 54 years old. MID/LOWER BACK PAIN INCREASING, HX SPINAL CORD STIMULATOR TECHNIQUE: 3 view(s) of the thoracic spine were obtained. COMPARISON: None. FINDINGS: Normal kyphosis of the thoracic spine. Mild levoscoliosis. There is demineralization of the thoracic spine with endplate spondylosis. There is multilevel disc space narrowing of the thoracic spine. Spinal cord stimulator device is seen. The electrodes are at the T7-T8 level. RAD/Thoracic Spine 3 Views IMPRESSION: Tip of the electrodes from the spinal cord stimulator is at the T7-T8 vertebral level. Mild degree of levoscoliosis and multilevel disc space narrowing and degeneration. Electronically Signed: Paulino Snyder, at 15:10 EDT , Service support ,
== END ==
PROVIDERS: Referring Provider Anesthesiology; Visit Provider Anesthesiology
DX: M54.6 Pain in thoracic spine (principal)
CPT/HCPCS: 72072

== ENCOUNTER → 2020-08-02 19:00 | Outpatient (CLI) | payer MEDICAID, MEDICARE, SELFPAY ==
[2019-02-10 13:09] VITALS: BMI 26.7
== END ==
PROVIDERS: Visit Provider Anesthesiology
DX: F11.20 Opioid dependence, uncomplicated (principal)

== ENCOUNTER → 2020-08-02 | Outpatient (CLI) | payer MEDICARE, MEDICAID, SELFPAY ==
[2019-02-10 13:09] VITALS: BMI 26.7
[2020-08-02 20:04] LABS: Amphetamine Urine VISTA NEGATIVE (<1000 ng/mL); Barbiturate Urine VISTA NEGATIVE (< 200 ng/mL); Benzodiazepine Urine VISTA NEGATIVE (< 200 ng/mL); Cocaine Urine VISTA NEGATIVE (< 300 ng/mL); Ecstacy Urine VISTA NEGATIVE (< 500 ng/mL); Methadone Urine VISTA NEGATIVE (< 300 ng/mL); PCP Urine VISTA NEGATIVE (< 25 ng/mL); THC Urine VISTA NEGATIVE (< 50 ng/mL); Vista UDS pH Range 5
== END | disposition home or self-care (01) ==
PROVIDERS: Referring Provider Anesthesiology; Visit Provider Anesthesiology
DX: F11.20 Opioid dependence, uncomplicated (principal)
CPT/HCPCS: 80307

== ENCOUNTER → 2021-03-28 16:28 | Outpatient (CLI) | payer MEDICARE, MEDICAID, SELFPAY ==
[2021-03-28 17:19] LABS: Amphetamine Urine VISTA NEGATIVE (<1000 ng/mL); Barbiturate Urine VISTA NEGATIVE (< 200 ng/mL); Benzodiazepine Urine VISTA NEGATIVE (< 200 ng/mL); Cocaine Urine VISTA NEGATIVE (< 300 ng/mL); Ecstacy Urine VISTA NEGATIVE (< 500 ng/mL); Methadone Urine VISTA NEGATIVE (< 300 ng/mL); PCP Urine VISTA NEGATIVE (< 25 ng/mL); THC Urine VISTA NEGATIVE (< 50 ng/mL); Vista UDS pH Range 5
== END ==
LOC: LAB 16:34
PROVIDERS: Referring Provider Anesthesiology; Visit Provider Anesthesiology
DX: F11.20 Opioid dependence, uncomplicated (principal)
CPT/HCPCS: 80307

== ENCOUNTER → 2021-10-16 | Outpatient (CLI) | payer MEDICARE, SELFPAY ==
[2021-10-16 12:37] LABS: Amphetamine Urine VISTA NEGATIVE (<1000 ng/mL); Barbiturate Urine VISTA NEGATIVE (< 200 ng/mL); Benzodiazepine Urine VISTA NEGATIVE (< 200 ng/mL); Cocaine Urine VISTA NEGATIVE (< 300 ng/mL); Ecstacy Urine VISTA NEGATIVE (< 500 ng/mL); Methadone Urine VISTA NEGATIVE (< 300 ng/mL); PCP Urine VISTA NEGATIVE (< 25 ng/mL); THC Urine VISTA NEGATIVE (< 50 ng/mL); Vista UDS pH Range 6
== END | disposition home or self-care (01) ==
PROVIDERS: Referring Provider Anesthesiology Pain Medicine; Visit Provider Anesthesiology Pain Medicine
DX: F11.20 Opioid dependence, uncomplicated (principal)
CPT/HCPCS: 80307

== ENCOUNTER → 2023-05-05 | Outpatient (CLI) | payer MEDICARE, SELFPAY ==
[2023-05-05 17:44] LABS: Amphetamine Urine VISTA NEGATIVE (<1000 ng/mL); Barbiturate Urine VISTA NEGATIVE (< 200 ng/mL); Benzodiazepine Urine VISTA NEGATIVE (< 200 ng/mL); Cocaine Urine VISTA NEGATIVE (< 300 ng/mL); Ecstacy Urine VISTA NEGATIVE (< 500 ng/mL); Methadone Urine VISTA NEGATIVE (< 300 ng/mL); PCP Urine VISTA NEGATIVE (< 25 ng/mL); THC Urine VISTA NEGATIVE (< 50 ng/mL); Vista UDS pH Range 6
== END | disposition home or self-care (01) ==
LOC: LAB 17:12
PROVIDERS: Referring Provider Anesthesiology Pain Medicine; Visit Provider Anesthesiology Pain Medicine
DX: F11.20 Opioid dependence, uncomplicated (principal)
CPT/HCPCS: 80307

== ENCOUNTER → 2024-03-30 | Outpatient (CLI) | payer MEDICARE, MEDICAID, SELFPAY ==
--- NOTE | 2024-03-30 17:45 | RAD_ITS ---
EXAM: XR SACRUM AND COCCYX, 2 OR MORE VIEWS CLINICAL INDICATION: PAIN TECHNIQUE: Frontal and lateral views of the sacrum and coccyx. COMPARISON: Lumbar spine on the same date. FINDINGS: SACRUM/COCCYX: Symmetric arthrosis of the bilateral SI joints. VERTEBRAE: Findings suggest partial sacralization of L5. DISC SPACES: Degenerative changes in the lower lumbar spine. Mild degenerative changes of the bilateral hips. SOFT TISSUES: No significant abnormality. No soft tissue swelling or gas. VASCULATURE: Vascular calcifications. TUBES, LINES AND DEVICES: Spinal cord stimulator device is again identified. RAD/Sacrum-Coccyx min 2 Views IMPRESSION: Degenerative changes. No acute fracture or dislocation. See above. Electronically Signed: Buddy Romano DO at 20:34 EDT ,
--- NOTE | 2024-03-30 17:45 | RAD_ITS ---
EXAM: XR LUMBOSACRAL SPINE, 2 OR 3 VIEWS CLINICAL INDICATION: PAIN TECHNIQUE: Frontal and lateral views of the lumbar spine and sacrum. COMPARISON: Sacrum and coccyx on the same date. Lumbar spine radiographs, 11/30/2018 FINDINGS: VERTEBRAE: Multilevel endplate osteophytosis and multilevel facet arthrosis. No fracture, spondylolysis, or spondylolisthesis. SACRUM/COCCYX: Mild symmetric arthrosis of the bilateral SI joints and visualized bilateral hips. Transitional anatomy at the lumbosacral junction with partial sacralization of L5. DISC SPACES: Mild multilevel intervertebral disc height loss. VASCULATURE: Vascular calcifications. GASTROINTESTINAL TRACT: Normal as visualized. Included bowel gas pattern is non-obstructive. TUBES, LINES AND DEVICES: Right side spinal cord stimulator is present with leads entering at the L1-L2 interlaminar space. The generator is in the right buttocks region. RAD/Lumbar Spine 2 or 3 Views IMPRESSION: 1. Right side spinal cord stimulator is present with leads entering at the L1-L2 interlaminar space. The generator is in the right buttocks region. 2. Transitional anatomy at the lumbosacral junction with partial sacralization of L5. 3. Multilevel degenerative changes. No fracture or spondylolysis. No spondylolisthesis. Electronically Signed: Buddy Romano DO at 20:27 EDT ,
== END | disposition home or self-care (01) ==
LOC: RAD 17:43
PROVIDERS: Referring Provider Anesthesiology Pain Medicine; Visit Provider Anesthesiology Pain Medicine
DX: M96.1 Postlaminectomy syndrome, not elsewhere classified (principal)
CPT/HCPCS: 72100; 72220

== ENCOUNTER → 2024-05-31 | Outpatient (CLI) | payer MEDICARE, SELFPAY ==
--- NOTE | 2024-05-31 18:16 | RAD_ITS ---
EXAM: XR LEFT KNEE, 1 OR 2 VIEWS CLINICAL INDICATION: pain TECHNIQUE: Frontal and/or lateral views of the left knee. COMPARISON: No relevant prior studies available. FINDINGS: BONES/JOINTS: Small well corticated sclerotic bone lesion in the left tibia proximally, 6 mm, likely incidental bone island. Moderate medial joint compartment narrowing and mild periarticular osteophytes medially and laterally. No acute fracture. No subluxation. Normal alignment. SOFT TISSUES: Minimal soft tissue swelling over the patella on the lateral view. No suprapatellar joint effusion. No radiopaque foreign body. RAD/Knee 1 or 2 Views IMPRESSION: Degenerative changes. No acute abnormality. Electronically Signed: Traci Acevedo MD at 3:08 EST ,
--- NOTE | 2024-05-31 18:25 | RAD_ITS ---
EXAM: XR RIGHT KNEE, 1 OR 2 VIEWS CLINICAL INDICATION: pain TECHNIQUE: Frontal and/or lateral views of the right knee. COMPARISON: No relevant prior studies available. FINDINGS: BONES/JOINTS: Small flabella posterior to the knee. Mild joint compartment narrowing medially. Minimal medial periarticular osteophytes. No acute fracture. No subluxation. Normal alignment. No sclerotic or destructive changes observed. No joint distention or effusion. SOFT TISSUES: Unremarkable. No soft tissue swelling or gas. No radiopaque foreign body. RAD/Knee 1 or 2 Views IMPRESSION: Minimal degenerative changes. Electronically Signed: Traci Acevedo MD at 3:09 EST ,
== END | disposition home or self-care (01) ==
PROVIDERS: Referring Provider Anesthesiology Pain Medicine; Visit Provider Anesthesiology Pain Medicine
DX: M17.0 Bilateral primary osteoarthritis of knee (principal)
CPT/HCPCS: 73560

== ENCOUNTER → 2024-10-12 | Outpatient (CLI) | payer MEDICARE, SELFPAY ==
[2024-10-12 21:25] LABS: Amphetamine Urine NEGATIVE (<1000 ng/mL); Barbiturate Urine NEGATIVE (< 200 ng/mL); Benzodiazepine Urine NEGATIVE (< 200 ng/mL); Buprenorphine Urine NEGATIVE (< 200 ng/mL); Cocaine Urine NEGATIVE (< 300 ng/mL); Fentanyl, Urine NEGATIVE; Methadone Urine NEGATIVE (< 300 ng/mL); Opiates Urine PRESUMPTIVE POSITIVE (< 300 ng/mL); Oxycodone, Urine PRESUMPTIVE POSITIVE (< 100 ng/mL); PCP Urine NEGATIVE (< 25 ng/mL); THC Urine NEGATIVE (< 50 ng/mL)
== END | disposition home or self-care (01) ==
LOC: LAB 17:08
PROVIDERS: Referring Provider Anesthesiology Pain Medicine; Visit Provider Anesthesiology Pain Medicine
DX: F11.20 Opioid dependence, uncomplicated (principal)
CPT/HCPCS: 80307